=== PATIENT | female | born 1950 | race Caucasian/White ===

== ENCOUNTER 2017-12-28 09:10 | Emergency (ER) | payer OTHER ==
[~2017-12-28] VITALS: Ht 163.8 cm; Wt 69.1 kg
[2017-12-28] MEDS ORDERED: AUGMENTIN875 MG PO (10:35)
[2017-12-28] MEDS ORDERED: MOTRIN800 MG PO (10:35)
[2017-12-28 10:55] VITALS: BP 95/59
[2017-12-28] MEDS ORDERED: ASCORBIC ACID500 M3 PO ×2 (15:44→15:46)
[2017-12-28] MEDS ORDERED: [UNRECOGNIZED DRUG - OTHER] PO (15:48)
== END 2017-12-28 10:56 | disposition home or self-care (01) ==
LOC: EME 09:10
DX: H66.91 Otitis media, unspecified, right ear (principal)
CPT/HCPCS: 99281; 99283

== ENCOUNTER 2017-12-28 13:39 | Inpatient (IN) | payer OTHER ==
[~2017-12-28] VITALS: Ht 162.6 cm; Wt 71.6 kg
[~2017-12-28 13:39] MED LIST: AUGMENTIN875 MG PO; MOTRIN800 MG PO
[2017-12-28 14:20] LABS: CHLORIDE 101 mEq/L (99-109); POTASSIUM 3.7 mEq/L (3.7-5.4); SODIUM 134 mEq/L (136-147)
[2017-12-28 14:21] LABS: GLUCOSE 141 mg/dL (70-99)
[2017-12-28 14:25] LABS: CREATININE 2.2 mg/dL (0.6-1.3); GFR ESTIMATE (CALCULATED) 24 mL/min/
[2017-12-28 14:34] LABS: HEMATOCRIT 39.5 % (36.0-46.0); HEMOGLOBIN 13.8 G/DL (11.9-15.5); MCH 30.9 PG (29.0-34.0); MCHC 34.9 G/DL (30.0-36.0); MCV 88.4 FL (83-99); PLATELET COUNT 77 K/uL (156-360); RBC DIS.WIDTH-CV 12.7 % (11.8-14.6); RBC DIS.WIDTH-SD 41.3 % (39-53); RED BLOOD COUNT 4.47 M/uL (3.80-5.20)
[2017-12-28 14:35] LABS: WHITE BLOOD COUNT 1.4 K/uL (4.1-10.2)
[2017-12-28 14:54] LABS: INTER. NORMALIZED RATIO 1.2
[2017-12-28 15:22] LABS: UREA NITROGEN (BUN) 27 mg/dL (9-23)
[2017-12-28 15:43] LABS: ABS NEUTROPHIL COUNT 1.2; ANISOCYTOSIS NONE SEEN; ATYPICAL LYMPHOCYTE 0.9 %; BAND NEUTROPHILS 32.7 % (0-8.0); EOSINOPHIL ABS CT 0; EOSINOPHILS 0.9 % (0-5.0); PLAT.SUFFICIENCY DECREASED; SEG.NEUTROPHILS 49.6 % (46.0-76.0); TOX.VACUOLIZATION 1+; TOXIC GRANULATION 1+
[2017-12-28] MEDS ORDERED: ASCORBIC ACID500 M3 PO ×2 (15:44→15:46)
[2017-12-28] MEDS ORDERED: [UNRECOGNIZED DRUG - OTHER] PO (15:48)
[2017-12-28 16:39] VITALS: BP 99/49
[2017-12-28 20:34] VITALS: BP 88/49
[2017-12-28 23:55] VITALS: BP 97/47
[2017-12-29 01:14] LABS: APPEARANCE CLOUDY ((CLEAR)); BILIRUBIN NEGATIVE; BLOOD SMALL; COLOR YELLOW ((YELLOW)); GLUCOSE (STRIP) 50; KETONES NEGATIVE; LEUKOCYTES SMALL; NITRITE NEGATIVE; PROTEIN (STRIP) 100; UROBILINOGEN 0.2 MG/DL (0.2-1.0)
[2017-12-29 01:28] LABS: BACTERIA RARE /HPF; EPITHELIAL CELLS 1+ /HPF; HYALINE CASTS 0-5 /LPF; MUCUS TRACE /LPF; RED BLOOD CELLS 0-5 /HPF (0-5); UCUL ADDED? YES; URIC ACID CRYSTALS 2+ /HPF; WHITE BLOOD CELLS 20-30 /HPF (0-5)
[2017-12-29 03:35] VITALS: BP 98/49
[2017-12-29 06:19] LABS: ALBUMIN 2.6 G/DL (3.2-4.8); ALKALINE PHOSPHATASE 52 IU/L (3-129); ALT (GPT) 116 IU/L (3-49); AST (GOT) 74 IU/L (2-34); CHLORIDE 105 MEQ/L (99-109); GFR ESTIMATE (CALCULATED) 18 mL/min/; GLUCOSE 125 mg/dL (70-99); POTASSIUM 3.4 MEQ/L (3.7-5.4); SODIUM 138 MEQ/L (136-147); TOTAL BILIRUBIN 1.6 MG/DL (0.0-1.0); TOTAL PROTEIN 4.4 G/DL (6.4-8.3); UREA NITROGEN (BUN) 31 mg/dL (9-23)
[2017-12-29 06:20] LABS: CREATININE 2.8 MG/DL (0.6-1.3)
[2017-12-29 06:59] LABS: HEMATOCRIT 31.8 % (36.0-46.0); MCH 30.3 PG (29.0-34.0); MCHC 34.3 G/DL (30.0-36.0); MCV 88.3 FL (83-99); PLATELET COUNT 61 K/uL (156-360); RBC DIS.WIDTH-CV 12.9 % (11.8-14.6); RBC DIS.WIDTH-SD 41.8 % (39-53); WHITE BLOOD COUNT 4.7 K/uL (4.1-10.2)
[2017-12-29 07:08] LABS: HEMOGLOBIN 10.9 G/DL (11.9-15.5)
[2017-12-29 07:28] VITALS: BP 108/51
[2017-12-29 11:00] VITALS: BP 98/47
[2017-12-29 16:37] VITALS: BP 135/61
[2017-12-29 18:50] VITALS: BP 112/53
[2017-12-29 22:57] VITALS: BP 115/53
[2017-12-30 03:22] VITALS: BP 106/54
[2017-12-30 06:18] LABS: HEMOGLOBIN 12.8 G/DL (11.9-15.5); MCHC 33.7 G/DL (30.0-36.0); MCV 89.2 FL (83-99); RBC DIS.WIDTH-SD 42.6 % (39-53); RED BLOOD COUNT 4.26 M/uL (3.80-5.20)
[2017-12-30 06:19] LABS: PLATELET COUNT 108 K/uL (156-360)
[2017-12-30 07:30] VITALS: BP 115/53
[2017-12-30 09:14] LABS: CHLORIDE 111 MEQ/L (99-109); CREATININE 1.8 MG/DL (0.6-1.3); FERRITIN 649 NG/ML (10-291); GFR ESTIMATE (CALCULATED) 30 mL/min/; GLUCOSE 122 mg/dL (70-99); IRON 83 MCG/DL (35-150); POTASSIUM 3.9 MEQ/L (3.7-5.4); SODIUM 143 MEQ/L (136-147); TRANSFERRIN (TIBC) 147.9 mg/dL (215-380); TRANSFERRIN SATUR. 56 % (20-55); UREA NITROGEN (BUN) 25 mg/dL (9-23)
[2017-12-30 09:24] LABS: FOLIC ACID (FOLATE) > 22.0 NG/ML (5.0-22.0)
== END 2017-12-30 13:58 | disposition home or self-care (01) | DRG 684 ==
LOC: EME 13:39 → EDOF 15:15 → 5EAST 15:15 → ENRESERV 15:22 → CANRESERV 15:22 → ENRESERV 15:25 → 5EAST 16:10
PROVIDERS: Internal Medicine; Nurse Practitioner Family; Physician Assistant
DX: N17.9 Acute kidney failure, unspecified (principal); R11.2 Nausea with vomiting, unspecified; T36.0X5A Adverse effect of penicillins, initial encounter; D69.6 Thrombocytopenia, unspecified; D70.9 Neutropenia, unspecified; R50.9 Fever, unspecified; R74.0 Nonspecific elevation of levels of transaminase and lactic acid dehydrogenase [LDH]; E87.6 Hypokalemia; R21 Rash and other nonspecific skin eruption; T37.8X5A Adverse effect of other specified systemic anti-infectives and antiparasitics, initial encounter; L25.9 Unspecified contact dermatitis, unspecified cause; D64.9 Anemia, unspecified
CPT/HCPCS: 71046; 74176; 80048; 80053; 81003; 82607; 82728; 82746; 83540; 84466; 85025; 85027; 85610; 87040; 87086; 99281; 99285; J1956; J2270; J2405; J7030